=== PATIENT | female | born 1990 | race African-American/Black ===

== ENCOUNTER 2019-01-17 18:12 | Emergency (ER) | payer MEDICAID, SELFPAY ==
[2019-01-17 18:14] VITALS: BP 123/85; PULSE 77; RESP 17; TEMP 36.8; O2SAT 99; BMI 26.6
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
[2019-01-17 18:31] VITALS: O2SAT 100
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
[2019-01-17] MEDS: Acetaminophen 500 MG Tablet 1000 MG PO (19:51)
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
[2019-01-17] MEDS: HYDROcodone Bitartrate/Apap 5/325 Tablet PO (20:34)
[2019-01-17 20:47] VITALS: BP 110/80; PULSE 74; RESP 17; O2SAT 97
--- NOTE | 2019-01-17 20:47 | ED.RN ---
DISCHARGE INSTRUCTIONS GIVEN TO AND REVIEWED WITH PATIENT, PATIENT DENIES QUESTIONS OR CONCERNS AND VOICES UNDERSTANDING OF DISCHARGE INSTRUCTIONS.
== END 2019-01-17 20:48 | disposition home or self-care (01) ==
PROVIDERS: Emergency Provider Emergency Medicine
DX: S09.90XA Unspecified injury of head, initial encounter (principal); S16.1XXA Strain of muscle, fascia and tendon at neck level, initial encounter; S46.911A Strain of unspecified muscle, fascia and tendon at shoulder and upper arm level, right arm, initial encounter; S50.01XA Contusion of right elbow, initial encounter; S70.01XA Contusion of right hip, initial encounter; V89.2XXA Person injured in unspecified motor-vehicle accident, traffic, initial encounter; Y93.9 Activity, unspecified; Y92.9 Unspecified place or not applicable
CPT/HCPCS: 70450; 72125; 73030; 73080; 73502; 99285